=== PATIENT | female | born 1995 | race African-American/Black ===

== ENCOUNTER 2018-08-18 16:43 | Emergency (ER) | payer OTHER ==
--- NOTE | 2018-08-18 18:37 | ED ---
- HPI Summary HPI Summary: Pt is a 23 y/o female who presents to the ED c/o cramping and vaginal bleeding. She states the symptoms began last night. Today she was no longer spotting, however she still had intermittent cramping. The cramps are described as contraction-like, and occurred every 5-10 minutes. She is currently 23 weeks , and she has had 1 before. LNMP 03/07/18, due date 12/12/18. She has been on flagyl recently for bacterial vaginosis. Her previous was normal and this one has been normal so far as well. Pt is feeling the baby move. She denies any hematuria or dysuria. Pts blood type is B positive. - History of Current Complaint Chief Complaint: EDVaginalBleeding Stated Complaint: ABD PAIN/5 MNTHS PREG Time Seen by Provider: 08/18/18 18:02 Hx Obtained From: Patient Onset/Duration: Started Days Ago - last night, Still Present Timing: Intermittent Current Severity: Moderate Pain Intensity: 5 Location of Pain: Other: - upper abdomen Character: Cramping Alleviating Factors: Nothing Associated Signs and Symptoms: Positive: Vaginal Bleeding or Discharge - bleeding - Allergies/Home Medications Allergies/Adverse Reactions: Allergies Allergy/AdvReac Type Severity Reaction Status Date / Time No Known Allergies Allergy Verified 08/18/18 16:54 PMH/Surg Hx/FS Hx/Imm Hx Endocrine/Hematology History: Denies: Hx Diabetes Cardiovascular History: Denies: Hx Hypertension Infectious Disease History: No Infectious Disease History: Denies: Traveled Outside the [place] in Last 30 Days - Family History Known Family History: Positive: Hypertension, Diabetes - Social History Alcohol Use: None Hx Substance Use: No Substance Use Type: Reports: None Hx Tobacco Use: No Smoking Status (MU): Never Smoked Tobacco Review of Systems Positive: other - vaginal bleeding Positive: Other - abdominal cramping All Other Systems Reviewed And Are Negative: Yes Physical Exam - Summary Physical Exam Summary: Appearance: Well appearing, no pain distress Skin: warm, dry, reflects adequate perfusion Head/face: normal Eyes: EOMI, LOLA ENT: mucous membranes moist Neck: supple, non-tender Respiratory: CTA, breath sounds present Cardiovascular: RRR, pulses symmetrical, no LE edema Abdomen: non-tender, soft, fundus palpable 3 cm above umbilicus, gravid abdomen , gross movement evident Bowel Sounds: present Musculoskeletal: normal, strength/ROM intact Neuro: normal, sensory motor intact, A&Ox3 - Physical Exam Triage Information Reviewed: Yes Vital Signs Reviewed: Yes Diagnostics - Vital Signs Vital Signs Temp Pulse Resp BP Pulse Ox 08/18/18 16:52 98.0 F 104 15 132/86 100 - Laboratory Lab Statement: Any lab studies that have been ordered have been reviewed, and results considered in the medical decision making process. - Ultrasound No standard instances Ultrasound Interpretation Completed By: Radiologist - US: single live IUP consistent w LMP. Closed cervix w/o previa or evidence of a placental bleed. ED physician reviewed radiology report. Re-Evaluation - Re-Evaluation First Eval Re-Evaluation Time: 18:39 Change: Unchanged Comment: heart tones are 136 bpm. Course/Dx - Course Course Of Treatment: Patient with no blood on pelvic exam. She is not having discomfort. Her blood pressure is normal. Her ultrasound shows heart tone, activity and no abruption or previa. Discussed the case with Dr. Diaz from [facility] who does not wish to monitor the patient. Will follow-up with Dr. Davis from [facility]. - Differential Diagnosis/HQI/PQRI: Other: - Placenta previa, placental abruption, miscarriage - Diagnoses Provider Diagnoses: Vaginal bleeding during - Provider Notifications Discussed Care Of Patient With: Caden Diaz Time Discussed With Above Provider: 18:42 Instructed by Provider To: Other - Pt does not need any monitoring and can be discharged. Discharge - Sign-Out/Discharge Documenting (check all that apply): Patient Departure - Discharge - Discharge Plan Condition: Improved Disposition: HOME Patient Education Materials: Threatened Miscarriage (ED) Referrals: Erick Jain MD [Medical Doctor] - Leticia Keller MD [Primary Care Provider] - Additional Instructions: Return with heavy bleeding, increased pain, worse or other concerns. Tylenol as needed for discomfort. Call your [facility] first thing in the morning to follow -up. - Billing Disposition and Condition Condition: IMPROVED Disposition: Home - Attestation Statements Document Initiated by Scribe: Yes Documenting Scribe: Lita Feliciano Provider For Whom Scribe is Documenting (Include Credential): Theo Barnard MD Scribe Attestation: Lita Graves, scribed for Theo Barnard MD on 08/18/18 at 1936. Scribe Documentation Reviewed: Yes Provider Attestation: The documentation as recorded by the scribe, Lita Feliciano accurately reflects the service I personally performed and the decisions made by me, Theo Barnard MD
[2018-08-18 19:19] VITALS: BP 110/74
== END 2018-08-18 19:19 | disposition home or self-care (01) ==
LOC: ED 16:43
DX: O46.92 Antepartum hemorrhage, unspecified, second trimester (principal); Z3A.23 23 weeks gestation of pregnancy
CPT/HCPCS: 76815; 99282

== ENCOUNTER 2018-11-20 17:27 | Inpatient (IN) | payer OTHER ==
[2018-11-20] MEDS ORDERED: Buffered Lidocaine 1% SYRIN* 1 ML/SYRINGE INTRADERM ONE (18:22)
[2018-11-20] MEDS ORDERED: Penicillin G Potassium IV* 5,000,000 UNITS in NS 0.9% 100 ML* 100 ML IVPB ONE (18:22)
[2018-11-20] MEDS ORDERED: Lactated Ringers 1000 ML Bag* 1,000 ML IV ONE ×2 (18:22→20:15)
[2018-11-20 18:33] LABS: Hematocrit 40 % (35-47); Hemoglobin 12.4 g/dl (12.0-16.0); Mean Corpuscular HGB Conc 32 g/dl (31-36); Mean Corpuscular Hemoglobin 23 pg (27-31); Mean Corpuscular Volume 74 fL (80-97); Mean Platelet Volume 8.7 fL (7.4-10.4); Platelet Count 244 10^3/ul (150-450); Red Blood Count 5.35 10^6/ul (4.00-5.40); Red Cell Distribution Width 16 % (10.5-15); White Blood Count 8.5 10^3/ul (3.5-10.8)
[2018-11-20 18:50] LABS: ALT 9 U/L (7-52); Albumin 3.5 g/dL (3.2-5.2); Albumin/Globulin Ratio 0.9 (1-3); Alkaline Phosphatase 324 U/L (34-104); BUN/Creatinine Ratio 14.3 (8-20); Blood Urea Nitrogen 10 mg/dL (6-24); CO2 Carbon Dioxide 24 mmol/L (22-32); Calcium 8.7 mg/dL (8.6-10.3); Chloride 105 mmol/L (101-111); EGFR African American 123.4 (>60); Globulin 3.9 g/dL (2-4); Glucose 72 mg/dL (70-100); Sodium 137 mmol/L (135-145); Total Protein 7.4 g/dL (6.4-8.9)
--- NOTE | 2018-11-20 18:51 | HP ---
General Information - Reason for Visit contractions - General Information Maternal Age: 23 Grav: 2 Para: 1 Estimated Due Date: 12/12/18 Determined By: 15 week US Maternal Blood Type and Rh: B Positive - Results this Serology/RPR Result: Non-Reactive Rubella Result: Immune HBsAg Result: Negative HIV Result: Negative GBS Culture Result: Positive Past Medical History Delivery History: Hx C/Section, See Records Pertinent Past Medical History: See Records Pertinent Past Surgical History: See Records Pertinent Family History: See Records - Antepartal Records Antepartal Records: Reviewed, Complicated by: - desires trial of labor Review of Systems Constitutional: Comfortable CV Complaint: No Respiratory: Shortness of Breath: No Gastrointestinal: No Nausea/Vomiting Genitourinary: No Dysuria, No Bleeding, No Leaking Fluid Musculoskeletal: No Complaint Neurological: No Headache Movement: Normal Exam Allergies/Adverse Reactions: Allergies No Known Allergies Allergy (Verified 08/18/18 16:54) 156/88 t: 97.7 P: 84 Lab Values - Entire Visit: Laboratory Tests 11/20/18 18:05 WBC 8.5 RBC 5.35 Hgb 12.4 Hct 40 MCV 74 L MCH 23 L MCHC 32 RDW 16 H Plt Count 244 MPV 8.7 Laboratory Results - last 24 hr 11/20/18 11/20/18 11/20/18 18:05 18:05 18:05 WBC 8.5 RBC 5.35 Hgb 12.4 Hct 40 MCV 74 L MCH 23 L MCHC 32 RDW 16 H Plt Count 244 MPV 8.7 Sodium 137 Potassium TNP Chloride 105 Carbon Dioxide 24 Anion Gap 8 BUN 10 Creatinine 0.70 Est GFR ( Amer) 123.4 Est GFR (Non-Af Amer) 102.0 BUN/Creatinine Ratio 14.3 Glucose 72 Calcium 8.7 Total Bilirubin 0.20 AST TNP ALT 9 Alkaline Phosphatase 324 H Total Protein 7.4 Albumin 3.5 Globulin 3.9 Albumin/Globulin Ratio 0.9 L Blood Type B Positive - Measurements Height: 5 ft 1 in Weight: 143 lb Weight in lbs: [id number] Body Mass Index (BMI): 27.0 Pre- Weight: 101 lb Weight Gained This : 42 lbs and 0 ozs - Exam Breast: Breast Exam Deferred CVA: No CVA Tenderness Extremities: No Edema Heart: Normal Rhythm/Heart Sounds HEENT: No Significant Findings Lungs: Clear Bilaterally Rectal: Rectal Exam Deferred Reflexes: DTR 2+ Thyroid: No Thyromegaly - Abdominal Exam Abdomen Exam: Non-Tender - Ultrasound/Biophysical Profile Ultrasound Status: Not Done Targeted Exam Findings Cervical Exam: 3cm Effacement: 80% Presenting Part: Vertex Membrane Status: Intact EFM Findings - External Monitor Findings Baseline Heart Rate: 130 External Monitor Findings: Accelerations Present, No Pattern of Variable or Late Decelerations, Variability Moderate Contractions: Regular - Q 3' Assessment/Plan - Obstetrical Risk Factors Obstetrical Risk Factors: GBS Positive, Previous C/Section in Labor - Plan Plan: IV Hydration, Admit - Anticipate Vaginal Delivery - Pt 23 yo presents in early labor .Pt with a prior history of section for arrest of descent. Pt desires a trial of labor and accpets risk associated with trial of labor to include but not limited to catastrophic outcome to both patient and her unborn child. Pt acknowledges risk of cerebral palsy and personal risk of hysterectomy and need for blood produtcs.Pt is also aware of need for emergent section.
[2018-11-20] MEDS ORDERED: Lactated Ringers 1000 ML Bag* 1,000 ML IV SCH ×3 (19:00→23:00)
[2018-11-20 19:08] LABS: Anion Gap 8 mmol/L (2-11)
[2018-11-20] MEDS ORDERED: OBEPIDURAL* 250 ML EPIDURAL ONE (19:33)
[2018-11-20 20:10] LABS: Uric Acid 7.6 mg/dL (2.3-6.6)
[2018-11-20] MEDS ORDERED: Lactated Ringers 1000 ML Bag* 500 ML IV PRN ×2 (20:15)
[2018-11-20] MEDS ORDERED: Sodium Citrate/Citric Acid* 15 ML UDC PO PRN (20:15)
[2018-11-20] MEDS ORDERED: Famotidine TAB* 20 MG PO PRN (20:15)
[2018-11-20] MEDS ORDERED: Phenylephrine IV* 40 MCG/ML 10 ML SYRINGE IV PUSH PRN ×2 (20:15)
[2018-11-20] MEDS ORDERED: Lidocaine 2% EPI 1:200000 MPF*10-20 ML VIAL ONE (20:58)
[2018-11-20] MEDS ORDERED: OXYTOCIN* 10 UNITS/ML 1 ML VIAL ONE (20:58)
[2018-11-20] MEDS ORDERED: OBEPIDURAL* 250 ML EPIDURAL SCH (21:00)
[2018-11-20] MEDS ORDERED: ceFOXitin 2 GM IVPREMIX* 2 GM/50 ML BAG ONE (21:04)
[2018-11-20] MEDS ORDERED: ceFOXitin 2 GM IVPREMIX* 2 GM/50 ML BAG IVPB ONE (21:06)
[2018-11-20 21:13] LABS: Urine Appearance Cloudy; Urine Bacteria Absent (Absent); Urine Bilirubin Negative (Negative); Urine Blood 2+ (Negative); Urine Color Yellow; Urine Glucose Negative (Negative); Urine Ketones Negative (Negative); Urine Nitrite Negative (Negative); Urine Protein 1+(30 mg/dL) (Negative); Urine Red Blood Cell 3+(>10/hpf) (Absent); Urine Specific Gravity 1.025 (1.010-1.030); Urine Squamous Epithelial Cell Present (Absent); Urine Urobilinogen Negative (Negative); Urine White Blood Cell Trace(0-5/hpf) (Absent)
[2018-11-20] MEDS ORDERED: Propofol* 10 MG/ML 20 ML BTL ONE (21:25)
[2018-11-20] MEDS ORDERED: fentaNYL* 50 MCG/ML 2 ML VIAL (100 MCG VIAL) ONE (21:25)
[2018-11-20] MEDS ORDERED: Famotidine IV* 10 MG/ML 2 ML (20 mg) ONE (21:25)
[2018-11-20] MEDS ORDERED: Morphine PF AMP (0.5MG/ML)* 5 MG/10 ML AMP ONE (21:40)
[2018-11-20] MEDS ORDERED: Ketorolac INJ* 30 MG/ML 1 ML VIAL ONE (21:54)
[2018-11-20] MEDS ORDERED: fentaNYL* 50 MCG/ML 2 ML VIAL (100 MCG VIAL) IV PRN (21:54)
[2018-11-20] MEDS ORDERED: Naloxone* 0.4 MG/ML 1 ML VIAL IV PRN ×2 (21:54→21:55)
[2018-11-20] MEDS ORDERED: HYDROcodone/ACETAMIN 5-325 MG* 1 TAB PO PRN (21:55)
[2018-11-20] MEDS ORDERED: Ondansetron INJ* 2 MG/ML VIAL IV PRN (21:55)
[2018-11-20] MEDS ORDERED: diPHENhydraMINE IV* 50 MG/ML 1 ml VIAL (BENADRYL) IV PRN (21:55)
[2018-11-20] MEDS ORDERED: DiMENhydriNATE IV* 50 MG/ML VIAL IV PUSH PRN (21:55)
[2018-11-20] MEDS ORDERED: Scopolamine 1.5 mg* PATCH TRANSDERM PRN (21:55)
[2018-11-20] MEDS ORDERED: PROCHLORPERAZINE INJ 5 MG/ML 2 ML VIAL IV PRN (21:55)
[2018-11-20] MEDS ORDERED: Dibucaine 1% 28.35 GM TUBE PR PRN (22:33)
[2018-11-20] MEDS ORDERED: Glycerin ADULT SUPP PR PRN (22:33)
[2018-11-20] MEDS ORDERED: Witch Hazel PAD* JAR TOPICAL PRN (22:33)
[2018-11-20] MEDS ORDERED: Oxytocin in LR* 20 UNITS/1,000 ML BAG IVPB SCH (23:00)
[2018-11-20] MEDS ORDERED: Penicillin G Potassium IV* 2,500,000 UNITS in NS 0.9% 100 ML* 100 ML IVPB SCH (23:00)
--- NOTE | 2018-11-21 01:12 | OP ---
AMENDED REPORT TO CORRECT DATE OF OPERATION DATE OF OPERATION: 11/21/18 DATE OF : 89 SURGEON: Sobeida Fuller MD BOOKMAKER'S CLERK: Sonali Oakley CNM PRE-OP DIAGNOSES: Intrauterine , 36 and 6/7 weeks, preeclampsia, category 2 heart tracing, failure of trial of labor after section. POST-OP DIAGNOSES: Intrauterine , 36 and 6/7 weeks, preeclampsia, category 2 heart tracing, failure of trial of labor after section , delivered. OPERATIVE PROCEDURE: Repeat low transverse section. ESTIMATED BLOOD LOSS: 500 cc. URINE OUTPUT: Clear yellow urine. FLUIDS: 1800 cc of crystalloid. FINDINGS: Revealed a vertex male infant, left nuchal arm with cord and densely adherent uterine wall with abdominal wall. Extraperitoneal delivery occurred secondary to extensive adhesions, not able to palpate tubes or ovaries right or left. Uterine cavity was explored and noted to be free of all membranes and placental tissue. Male infant. Apgars were 8 at 1 minute and 9 at 5 minutes. Weight was 5 pounds. Placenta was manually extracted, 3-vessel cord and intact. Placenta sent to pathology. COMPLICATIONS: None apparent. DISPOSITION: Stable to recovery room. DESCRIPTION OF PROCEDURE: The patient was placed in dorsal lithotomy position. Abdomen was prepped and draped in a sterile standard fashion. Anesthesia was tested to appropriate level. An incision was made with scalpel through the prior incision site. The incision was carried down through to the fascia. Fascia was scored and then and fascial incision was extended laterally and superiorly using Moreland scissors. The peritoneum was noted to be densely adherent to the anterior lower uterine segment. The bladder blade was inserted. The incision was made in the lower uterine segment and extended bluntly. Nuchal arm was noted. Head was then delivered. Cord was reduced anterior posterior and arm delivered. Cord was milked and clamped and cut and then baby was handed off to waiting cuff folder, Dr. Rodriguez. Appropriate cord blood was obtained. Placenta was then manually extracted and noted to be intact 3-vessel cord. Uterine cavity was explored and noted to be free of any membranes. The peritoneal adhesions were extensive the anterior abdominal wall was completely adherent to the uterus such that bowel could not be palpated nor could tubes or ovaries. The uterine incision was clamped with broad Allises and then the uterine incision was reapproximated using 0 Vicryl x2, first layer running locked, second layer running imbricated. Lavage was performed. Hemostasis was noted. There was no peritoneum to close. The fascia was then reapproximated after hemostasis was assured at the hysterotomy site and prefascial area. Fascia was reapproximated using 0 Vicryl x2 in a running fashion. Subcu was lavaged. Hemostasis assured and the skin was reapproximated using a 4-0 Monocryl Steri's and Mastisol were applied. All sponge, instrument, and blade counts were correct throughout the case. The patient tolerated the procedure well and went to the recovery room in stable condition. [id number]/[facility] #: [id number] ED[place]ARD
[2018-11-21] MEDS: Ketorolac INJ* 30 MG/ML 1 ML VIAL IV PRN ×3 (04:35→20:02)
[2018-11-21 07:30] LABS: ABS Basophils 0 10^3/ul (0-0.2); ABS Eosinophils 0 10^3/ul (0-0.6); ABS Lymphocytes 1.3 10^3/ul (1.0-4.8); ABS Monocytes 0.7 10^3/ul (0-0.8); ABS Neutrophils 9.4 10^3/ul (1.5-7.7); ABS Nucleated RBC 0 10^3/ul; Eosinophil % 0.3 %; Hematocrit 29 % (35-47); Lymphocyte % 11.5 %; Mean Corpuscular HGB Conc 31 g/dl (31-36); Mean Corpuscular Hemoglobin 23 pg (27-31); Mean Corpuscular Volume 73 fL (80-97); Mean Platelet Volume 8.4 fL (7.4-10.4); Nucleated Red Blood Cells % 0.1; Platelet Count 167 10^3/ul (150-450); Red Cell Distribution Width 16 % (10.5-15); White Blood Count 11.4 10^3/ul (3.5-10.8)
[2018-11-21] MEDS: Acetaminophen TAB* 325 MG PO SCH ×2 (10:09→15:29)
[2018-11-21] MEDS: Ferrous Gluconate TAB* 324 MG TAB PO SCH ×2 (10:10→20:01)
[2018-11-21] MEDS: Simethicone TAB* 80 MG TAB.CHEW PO SCH ×4 (10:11→20:02)
[2018-11-21] MEDS: Docusate CAP* 100 MG PO SCH ×3 (10:11→20:01)
[2018-11-21] MEDS ORDERED: oxyCODONE/Acetamin 5/325 MG* TAB PO PRN (13:46)
[2018-11-21] MEDS: Acetaminophen TAB* 325 MG PO PRN (15:30)
[2018-11-21] MEDS: Prenatal Vitamin TAB PO SCH (20:01)
[2018-11-22] MEDS: Acetaminophen TAB* 325 MG PO PRN (01:12)
[2018-11-22] MEDS: Ibuprofen TAB* 600 MG PO PRN ×4 (02:08→21:23)
[2018-11-22] MEDS: Ferrous Gluconate TAB* 324 MG TAB PO SCH ×2 (08:46→21:22)
[2018-11-22] MEDS: Docusate CAP* 100 MG PO SCH ×3 (08:46→21:22)
[2018-11-22] MEDS: Simethicone TAB* 80 MG TAB.CHEW PO SCH ×4 (08:47→20:24)
[2018-11-22] MEDS: Prenatal Vitamin TAB PO SCH (19:04)
[2018-11-22] MEDS: oxyCODONE/Acetamin 5/325 MG* TAB PO PRN (22:16)
[2018-11-23] MEDS: oxyCODONE/Acetamin 5/325 MG* TAB PO PRN ×3 (04:20→13:25)
[2018-11-23] MEDS: Ibuprofen TAB* 600 MG PO PRN ×2 (04:20→10:35)
[2018-11-23 08:05] VITALS: BP 109/61
[2018-11-23] MEDS: Docusate CAP* 100 MG PO SCH ×2 (08:56→15:15)
[2018-11-23] MEDS: Simethicone TAB* 80 MG TAB.CHEW PO SCH ×2 (08:56→13:26)
[2018-11-23] MEDS: Ferrous Gluconate TAB* 324 MG TAB PO SCH (08:56)
[2018-11-23] MEDS ORDERED: Scopolamine PATCH Remove* 1 NOTE MISC PATCH OFF PRN (21:57)
== END 2018-11-23 15:41 | disposition home or self-care (01) | DRG 540 ==
LOC: MCHOBOUT 17:27 → MCHOB 18:12
PROVIDERS: ADMIT Obstetrics & Gynecology; ATTEND Obstetrics & Gynecology
PROC: 10D00Z1 Extraction of Products of Conception, Low, Open Approach (ICD-10-PCS; principal; 2018-11-20)
PROC: 10907ZC Drainage of Amniotic Fluid, Therapeutic from Products of Conception, Via Natural or Artificial Opening (ICD-10-PCS; 2018-11-20)
DX: O66.41 Failed attempted vaginal birth after previous cesarean delivery (principal); O60.10X0 Preterm labor with preterm delivery, unspecified trimester, not applicable or unspecified; O14.94 Unspecified pre-eclampsia, complicating childbirth; O76 Abnormality in fetal heart rate and rhythm complicating labor and delivery; O34.211 Maternal care for low transverse scar from previous cesarean delivery; O69.89X0 Labor and delivery complicated by other cord complications, not applicable or unspecified; O99.89 Other specified diseases and conditions complicating pregnancy, childbirth and the puerperium; N73.6 Female pelvic peritoneal adhesions (postinfective); Z3A.36 36 weeks gestation of pregnancy; Z37.0 Single live birth
CPT/HCPCS: 36415; 80053; 81003; 81015; 84550; 85025; 85027; 86850; 86900; 86901; 87086; 88307; A9270-GY; J0694; J1200; J1885; J2540; J2590; J2704; J3010

== ENCOUNTER 2024-02-28 07:45 | Inpatient (IN) ==
[2024-02-28] MEDS ORDERED: Oxytocin 10 UNITS/ML 1 ML VIAL ONE ×2 (10:21→12:53)
[2024-02-28] MEDS ORDERED: Dexamethasone IV 4 MG/ML VIAL 1 ml VIAL ONE (10:21)
[2024-02-28] MEDS ORDERED: Ondansetron 4 mg VIAL 2 MG/ML 2 ml VIAL ONE (10:21)
[2024-02-28] MEDS ORDERED: Morphine PF AMP (0.5MG/ML) 5 MG/10 ML AMP ONE (10:25)
[2024-02-28] MEDS: Lactated Ringers 1000 ml BAG 1,000 ML IV ONE (10:30)
[2024-02-28] MEDS ORDERED: ceFOXitin 2 GM IVPREMIX 2 GM/50 ML BAG IVPB ONE (10:41)
[2024-02-28] MEDS ORDERED: Buffered Lidocaine 1% SYRIN 1 ml INTRADERM ONE (10:41)
[2024-02-28] MEDS ORDERED: Lactated Ringers 1000 ml BAG 1,000 ML IV SCH ×2 (11:00→14:00)
[2024-02-28] MEDS ORDERED: Naloxone 0.4 mg VIAL 0.4 mg/ml 1 ml VIAL IV PUSH PRN (11:02)
[2024-02-28] MEDS ORDERED: Metoclopramide 5 MG/ML VIAL (10 mg) IV PRN (11:02)
[2024-02-28] MEDS ORDERED: Acetaminophen IV 1 GM/100ML 1,000 MG/100 ML BAG IV PRN (11:02)
[2024-02-28] MEDS ORDERED: Ondansetron 4 mg VIAL 2 MG/ML 2 ml VIAL IV PRN (11:02)
[2024-02-28] MEDS: Sodium Citrate/Citric Acid LIQ 15 ML UDC PO ONE (11:08)
[2024-02-28 11:13] LABS: Hematocrit 35.3 % (35-45); Hemoglobin 11.3 g/dL (11.5-14.3); Mean Corpuscular Hemoglobin 23.7 pg (27-33); Mean Corpuscular Hgb Conc 31.9 g/dL (31-36); Mean Corpuscular Volume 74.5 fL (80-97); Platelet Count 230 10^3/uL (150-450); Red Blood Count 4.74 10^6/uL (3.63-4.92); Red Cell Distribution Width 16.5 % (12-17); White Blood Count 8.2 10^3/uL (3.8-11.8)
[2024-02-28 11:41] LABS: ABS Basophils 0.1 10^3/uL (0.0-0.1); ABS Eosinophils 0.1 10^3/uL (0.0-0.5); ABS Lymphocytes 1.1 10^3/uL (1.0-4.8); ABS Monocytes 0.9 10^3/uL (0.0-0.9); ABS Nucleated RBC 0.01 10^3/ul; Eosinophil % 1.2 %; Lymphocyte % 13.7 %; Nucleated Red Blood Cells % 0.1 %/100WBC (0.0-0.8)
[2024-02-28] MEDS ORDERED: Acetaminophen IV 1 GM/100ML 1,000 MG/100 ML BAG IV ONE (12:14)
[2024-02-28] MEDS ORDERED: Phenylephrine 40 mcg/mL 10mL (400mcg) SYRINGE ONE (12:15)
[2024-02-28 12:56] LABS: Urine Appearance Clear; Urine Bilirubin Negative (Negative); Urine Blood Trace (Negative); Urine Color Colorless; Urine Glucose Negative (Negative); Urine Ketones Negative (Negative); Urine Nitrite Negative (Negative); Urine Protein 2+ (>=100 mg/dL) (Negative); Urine Urobilinogen Negative (Negative)
[2024-02-28] MEDS ORDERED: Dibucaine 1% OINT 28.35 GM TUBE PR PRN (13:21)
[2024-02-28] MEDS ORDERED: Glycerin ADULT 2.4 gm SUPP PR PRN (13:21)
[2024-02-28] MEDS ORDERED: Witch Hazel PAD JAR TOPICAL PRN (13:21)
[2024-02-28 13:28] LABS: Urine Bacteria Absent /HPF (Absent); Urine Red Blood Cell 1+(3-5/hpf) /HPF (0-Trace); Urine White Blood Cell Trace(0-5/hpf) /HPF (0-Trace)
[2024-02-28 13:36] LABS: Urine Benzodiazepine Screen None Detected (None Detect); Urine Cannabinoids Screen None Detected (None Detect); Urine Opiates Screen None Detected (None Detect)
[2024-02-28] MEDS: Oxytocin in LR 20,000 MILLI.UNIT/1,000 ML BAG IV SCH (15:15)
[2024-02-29 07:39] LABS: Hematocrit 27.4 % (35-45); Hemoglobin 8.7 g/dL (11.5-14.3); Mean Corpuscular Hemoglobin 23.9 pg (27-33); Mean Corpuscular Hgb Conc 31.8 g/dL (31-36); Red Blood Count 3.65 10^6/uL (3.63-4.92); Red Cell Distribution Width 16.6 % (12-17); White Blood Count 13.2 10^3/uL (3.8-11.8)
[2024-02-29 08:43] LABS: ABS Lymphocytes 1.4 10^3/uL (1.0-4.8); ABS Monocytes 1.2 10^3/uL (0.0-0.9); ABS Neutrophils 10.6 10^3/uL (1.5-7.6); ABS Nucleated RBC 0.01 10^3/ul; Anisocytosis 1+; Eosinophil % 0.3 %; Hypochromasia 1+; Lymphocyte % 10.7 %; Mean Platelet Volume 8.9 fL (7.5-11.2); Platelet Count 184 10^3/uL (150-450); Polychromasia 1+
[2024-03-01 08:35] VITALS: BP 134/71
[2024-03-01] MEDS: Varicella Virus Vaccine Live 0.5 ML VIAL SUBCUT ONE (14:44)
[2024-03-01] MEDS: medroxyPROGESTERone ACETATE 150 MG/ML VIAL IM ONE (14:46)
== END 2024-03-01 14:58 | disposition home or self-care (01) | DRG 540 ==
LOC: MCHOB 09:59
PROVIDERS: ADMIT Obstetrics & Gynecology; ATTEND Obstetrics & Gynecology